=== PATIENT | female | born 1960 | race Caucasian/White ===

== ENCOUNTER 2023-09-20 16:47 | Emergency (ER) | payer OTHER, SELFPAY ==
[2023-09-20 16:49] VITALS: BP 175/94; PULSE 68; RESP 15; TEMP 36.7; O2SAT 97; BMI 28.0
== END 2023-09-20 17:04 | disposition left against medical advice (07) ==
PROVIDERS: Emergency Provider Emergency Medicine
DX: M25.569 Pain in unspecified knee (principal)
CPT/HCPCS: 99281